=== PATIENT | female | born 1995 | race African-American/Black ===

== ENCOUNTER 2016-11-02 17:55 | Emergency (ER) | payer MEDICAID ==
[~2016-11-02] VITALS: Ht 165.1 cm; Wt 70.7 kg
[2016-11-02 21:59] VITALS: BP 121/76
== END 2016-11-02 22:59 | disposition home or self-care (01) ==
LOC: ER 20:16
DX: S63.91XA Sprain of unspecified part of right wrist and hand, initial encounter (principal); D57.3 Sickle-cell trait; W22.03XA Walked into furniture, initial encounter; Y93.89 Activity, other specified; Y92.018 Other place in single-family (private) house as the place of occurrence of the external cause
CPT/HCPCS: 73130; 81025; 99284

== ENCOUNTER 2017-03-02 12:57 | Emergency (ER) | payer MEDICAID ==
[~2017-03-02] VITALS: Ht 165.1 cm; Wt 70.0 kg
[2017-03-02] MEDS ORDERED: DIPHENHYDRAMINE 25MG CAPSULE PO ONE (21:00)
[2017-03-02 22:18] VITALS: BP 131/63
== END 2017-03-02 22:48 | disposition home or self-care (01) ==
LOC: ER 13:21
DX: S50.869A Insect bite (nonvenomous) of unspecified forearm, initial encounter (principal); T78.40XA Allergy, unspecified, initial encounter; Z88.1 Allergy status to other antibiotic agents; Z88.0 Allergy status to penicillin; X58.XXXA Exposure to other specified factors, initial encounter; Y93.89 Activity, other specified; Y92.89 Other specified places as the place of occurrence of the external cause
CPT/HCPCS: 99283; Z7610; Q0163